=== PATIENT | male | born 1990 | race Native Hawaiian/Other Pacific Islander ===

== ENCOUNTER 2017-11-19 01:19 | Emergency (ER) | payer OTHER ==
[2017-11-19 01:39] VITALS: RESP 18; O2SAT 99
[2017-11-19] MEDS ORDERED: Bacitracin 500 Units/gm Oint Foilpak UD TOP ONE (01:40)
[2017-11-19] MEDS ORDERED: Lidocaine 1% (10 ml) Inj INFIL ONE (01:40)
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
[2017-11-19] MEDS ORDERED: Lidocaine 1%/Epinephrine 1:100000 30 ml vial INJ STA (02:02)
[2017-11-19] MEDS ORDERED: Bacitracin 500 Units/gm Oint Foilpak UD ONE (02:14)
[2017-11-19 03:32] VITALS: BP 124/78; PULSE 84; TEMP 98.5
== END 2017-11-19 03:28 | disposition home or self-care (01) ==
LOC: C.ER 01:19
DX: S01.81XA Laceration without foreign body of other part of head, initial encounter (principal); S60.512A Abrasion of left hand, initial encounter; S60.511A Abrasion of right hand, initial encounter; Y08.89XA Assault by other specified means, initial encounter; Y92.89 Other specified places as the place of occurrence of the external cause; Z23 Encounter for immunization

== ENCOUNTER 2017-11-24 15:55 | Emergency (ER) | payer OTHER ==
[2017-11-24 16:31] VITALS: BP 129/89; PULSE 89; RESP 20; TEMP 98.1; O2SAT 100
--- NOTE | 2017-11-24 16:47 | C.PDOC ---
Time Seen by Provider: 11/24/17 16:42 Chief Complaint (Nursing): Psychiatric Evaluation Past Medical History Vital Signs: Last Vital Signs Temp 98.1 F 11/24/17 16:28 Pulse 89 11/24/17 16:28 Resp 20 11/24/17 16:28 BP 129/89 11/24/17 16:28 Pulse Ox 100 11/24/17 16:28 Family History: States: Unknown Family Hx - Social History Hx Alcohol Use: Yes Hx Substance Use: No - Immunization History Hx Tetanus Toxoid Vaccination: Yes Hx Influenza Vaccination: No Hx Pneumococcal Vaccination: No ED Course And Treatment O2 Sat by Pulse Oximetry: 100 Disposition - Disposition
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
== END 2017-11-24 17:57 | disposition home or self-care (01) ==
LOC: C.ER 15:55
DX: G47.00 Insomnia, unspecified (principal)

== ENCOUNTER 2017-11-27 15:29 | Emergency (ER) | payer OTHER ==
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
[2017-11-27 16:26] VITALS: BMI 20.7
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
[2017-11-27 17:32] VITALS: BP 111/75; PULSE 69; RESP 18; TEMP 98; O2SAT 96
== END 2017-11-27 17:32 | disposition home or self-care (01) ==
LOC: C.ER 15:29
DX: Z48.02 Encounter for removal of sutures (principal); F43.10 Post-traumatic stress disorder, unspecified; S60.511A Abrasion of right hand, initial encounter; X58.XXXA Exposure to other specified factors, initial encounter

== ENCOUNTER 2017-12-29 13:38 | Emergency (ER) | payer SELFPAY ==
[2017-12-29 13:39] VITALS: BMI 20.7
[2017-12-29 13:50] VITALS: BP 121/72; PULSE 85; TEMP 97.9; O2SAT 97
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
[2017-12-29 15:21] VITALS: RESP 20
== END 2017-12-29 15:20 | disposition home or self-care (01) ==
LOC: C.ER 13:38
DX: F43.10 Post-traumatic stress disorder, unspecified (principal)